=== PATIENT | male | born 1970 | race Caucasian/White ===

== ENCOUNTER → 2018-07-22 | Outpatient (REF) ==
--- NOTE | 2018-07-22 09:22 | REP ---
AP LATERAL CERVICAL SPINE, FOUR VIEWS: HISTORY: Degenerative disc disease. The examination is limited. The cervical spine is visualized from C1 to C5-6 level with lateral radiograph. There is no acute fracture or subluxation. The intervertebral discs are normal in height. An osteophyte is present on C5. IMPRESSION: Degenerative change as described above. Electronically Signed by Mike Clancy MD 07/22/2018 09:29 A
== END ==
LOC: M SMT 08:56
PROVIDERS: ATTEND Internal Medicine
DX: Z02.89 Encounter for other administrative examinations (principal)

== ENCOUNTER → 2021-04-26 | Outpatient (CLI) | payer OTHER | LOC: M PAIN 09:00 | PROVIDERS: ATTEND Anesthesiology | DX: M54.2 Cervicalgia (principal); M79.18 Myalgia, other site; E11.9 Type 2 diabetes mellitus without complications; J45.909 Unspecified asthma, uncomplicated; Z88.8 Allergy status to other drugs, medicaments and biological substances; E66.01 Morbid (severe) obesity due to excess calories; Z68.43 Body mass index [BMI] 50.0-59.9, adult; Z79.82 Long term (current) use of aspirin; Z79.84 Long term (current) use of oral hypoglycemic drugs; Z79.899 Other long term (current) drug therapy ==